=== PATIENT | male | born 1950 | race Caucasian/White ===

== ENCOUNTER → 2019-06-28 | Outpatient (CLI) | payer MEDICARE | LOC: LAB.O 09:22 | PROVIDERS: ATTEND Nurse Practitioner | DX: R42 Dizziness and giddiness (principal); R94.6 Abnormal results of thyroid function studies; I10 Essential (primary) hypertension; E78.00 Pure hypercholesterolemia, unspecified; R79.89 Other specified abnormal findings of blood chemistry ==

== ENCOUNTER → 2019-07-19 | Outpatient (CLI) | payer MEDICARE ==
--- NOTE | 2019-07-19 11:36 | CT ---
EXAM DESCRIPTION: CT abdomen and pelvis without contrast CLINICAL HISTORY: CHRONIC KIDNEY DISEASE COMPARISON: None Available. TECHNIQUE: Spiral CT with multiplanar reformatted images. This exam was performed according to our departmental dose-optimization program, which includes automated exposure control, adjustment of the mA and/or kV according to patient size and/or use of iterative reconstruction technique. FINDINGS: Multiple bilateral renal cysts. Largest cyst of the right kidney is lower pole exophytic measuring up to 2.8 cm. Largest cyst left kidney is parapelvic measuring up to 8 cm in size. Mass effect with moderate pelvic caliectasis. Marked left renal parenchymal atrophy likely from chronic obstruction. No dilated ureter. Additional exophytic cysts mid to inferior anterior kidney and mid posterior kidney. These 2 additional cysts measure about 4. 4.2 cm respectively No solid renal mass lesion. No renal, ureteral or bladder calculus Central prostate hypertrophy indenting the base of the urinary bladder. No bladder mass lesion Visualized lung bases are clear. Large sliding-type hiatal hernia. Normal heart size. No mass lesion or focal inflammatory process in the stomach, small or large intestine. Normal terminal ileum and appendix No mass or adenopathy of the omentum, small bowel mesentery or retroperitoneum. Normal appearance of the liver, gallbladder, spleen, pancreas and adrenal glands. Multilevel degenerative changes in the spine. No acute abnormality IMPRESSION: Multiple bilateral renal cysts larger on the left with renal parenchymal atrophy likely from chronic obstruction. Large parapelvic cyst and dilated renal calyces Large sliding-type hiatal hernia containing the proximal half of the stomach Prostate hypertrophy Electronically signed by: Jovany Molina MD 07/19/2019 11:34 AM PC TECHNICIAN
== END ==
LOC: CT 10:17
PROVIDERS: ATTEND Internal Medicine Nephrology
DX: N18.4 Chronic kidney disease, stage 4 (severe) (principal)